=== PATIENT | male | born 1990 ===

== ENCOUNTER 2021-06-22 06:03 | Emergency (ER) | payer MEDICAID, OTHER ==
[~2021-06-22] VITALS: Ht 160 cm; Wt 72.6 kg
[2021-06-22 06:05] VITALS: BP 145/95
== END 2021-06-22 06:51 | disposition left against medical advice (07) ==
LOC: ER 06:03
DX: M25.531 Pain in right wrist (principal); Z53.21 Procedure and treatment not carried out due to patient leaving prior to being seen by health care provider